=== PATIENT | male | born 1985 | race Two or more races ===

== ENCOUNTER 2023-04-30 20:50 | Emergency (ER) | payer MEDICAID ==
[~2023-04-30] VITALS: Ht 167.6 cm; Wt 82.7 kg
[~2023-04-30 20:50] MED LIST: NO HOME MEDS
[2023-04-30 20:55] VITALS: BP 153/101; PULSE 123; RESP 18; TEMP 98.4; O2SAT 99
== END 2023-05-01 02:12 | disposition left against medical advice (07) ==
LOC: ER 20:50
DX: R13.10 Dysphagia, unspecified (principal); Z53.21 Procedure and treatment not carried out due to patient leaving prior to being seen by health care provider
CPT/HCPCS: 99281

== ENCOUNTER 2024-11-11 13:19 | Emergency (ER) | payer MEDICAID ==
[~2024-11-11] VITALS: Ht 167.6 cm; Wt 99.7 kg
[2024-11-11 13:23] VITALS: BP 124/67; PULSE 93; RESP 18; TEMP 97.2; O2SAT 97
[2024-11-11] MEDS ORDERED: ciprofloxacin 0.3% 2.5ml ophthalmic solution RIGHT EAR ONE (14:35)
--- NOTE | 2024-11-11 14:52 | Physician Documentation ---
History of Present Illness ~ Chief Complaint: Foreign body Stated Complaint: FOREIGN BODY Time Seen by MD: 13:53 Primary Medical Doctor: NONE HPI This is a 39-year-old male who presented with a concern for foreign body in right ear canal, patient reports he was using string tremor to clear grass and felt something strike him in the ear, patient is reporting pain to the right ear canal. Medication Reconciliation Allergies: Coded Allergies: No Known Allergies (Unverified , 11/11/24) Scheduled Ciprofloxacin HCl/Dexameth (Ciproflox-Dexameth Otic Susp), 4 DROP RIGHT EAR BID Miscellaneous Medications Home Med List (No Home Medications), (Reported) Past Medical History Past Medical History: No Pertinent History Review of Systems ROS Foreign body in right ear canal as stated above in the HPI, otherwise all systems are reviewed and negative. Physical Exam Vital Signs: Temperature: 97.2, Source: Temporal, Heart Rate: 93, Respiratory Rate: 18, BP: 124/67, Pulse Oximetry: 97, Weight: 99.700 Physical Exam VITALS: Reviewed and as above. GENERAL: Alert, nontoxic appearing, no apparent distress. HEENT: Right ear foxtail grass seed in auditory canal imbedded in tissue of auditory canal, minimal bleeding, no evidence of tympanic membrane involvement RESPIRATORY: No increased work of breathing, no respiratory distress, speaking in full clear sentences Procedures Ear Procedure Ear Procedure : Ear Location: Right Foreign Body/Cerumen Removal: foreign body removed Reexamination after Removal: blood in external canal, normal TM Tolerated Procedure Well?: yes, no complications Progress Results/Orders Results/Orders Completed Orders - LAURA MANSFIELD [employer] Ciprofloxacin Ophth Drops (Ciloxan 0.3% (11/11/24 14:35) Vital Signs 11/11/24 13:23 Temp 97.2 Pulse 93 Resp 18 B/P (MAP) 124/67 Pulse Ox 97 Medical Decision Making Findings This 39-year-old male presented with pain and sensation foreign body in his [facility] ear canal, on inspection there was a foxtail grass seed imbedded in the tissue of his right auditory canal without evidence of tympanic membrane involvement. The evans tail grass seed was successfully removed and a single intact piece without evidence of retained foreign body, there was minimal bleeding to the auditory canal. As there was some irritation to the canal antibiotic ear drops we will be prescribed for otitis externa. Remainder of physical exam benign and patient appropriate for outpatient follow up. Ear Diff. Dx: Considerations: Include: Cerumen impaction, Otitis externa, Otitis media, Perforation, Referred pain-dental, Referred pain-pharyngitis, Tympanic Membrane Injury Departure Disposition: HOME / SELF CARE / HOMELESS Impression: Primary Impression: Acute foreign body of right ear canal Qualified Codes: T16.1XXA - Foreign body in right ear, initial encounter Condition: Improved Discharge Instructions: Foreign Body, Ear Additional Instructions: Please use the antibiotic ear drops for the next five days. Please follow up with your primary care provider in the next few days. Please return to the emergency department for any new or worsening concerning symptoms. Referrals: NO PRIMARY CARE PROVIDER (PCP) Prescriptions Ciprofloxacin HCl/Dexameth (Ciproflox-Dexameth Otic Susp) 0.3 %-0.1 % Drops.susp 4 DROP RIGHT EAR BID for 5 Days, #1 BOTTLE Prov: LAURA MANSFIELD 11/11/24 Education Educated: Patient Educated regarding: diagnosis, treatment, prognosis, need for follow up Signature Scribe Signature: No scribe Attestation: The note accurately reflects work and decisions made by me.WILLIAMS Gao 11/12/24 01:03 LAURA MANSFIELD November 11, 2024 14:51
[2024-11-11] MEDS ORDERED: CIPR7.5D7 RIGHT EAR (14:57)
== END 2024-11-11 15:00 | disposition home or self-care (01) ==
LOC: ER 13:20
DX: T16.1XXA Foreign body in right ear, initial encounter (principal); W44.9XXA Unspecified foreign body entering into or through a natural orifice, initial encounter; Y93.89 Activity, other specified; Y92.89 Other specified places as the place of occurrence of the external cause; Y99.8 Other external cause status
CPT/HCPCS: 99284